=== PATIENT | male | born 1955 | race Caucasian/White ===

== ENCOUNTER 2018-07-09 12:11 | Emergency (ER) | payer OTHER ==
--- NOTE | 2018-07-09 13:02 | EDPHY ---
H & P Stated Complaint: awakened with a lapse in his memory of yesterday morning/no other symptoms Time Seen by Provider: 07/09/18 13:00 HPI/ROS: CHIEF COMPLAINT: Amnesia HISTORY OF PRESENT ILLNESS: 62-year-old male presents with amnesia. Onset of and needed to the events of today and yesterday starting at 11:30 a.m. Today. He was unable to recall any events related to the previous 36 hr initially. Now his memory is returning and he remembers almost everything. His remote memory remained intact. No headache, recent head injury and no prior CVA. No other associated symptoms. REVIEW OF SYSTEMS: complete 10 point ROS reviewed and is negative except for the noted elements in the HPI - Personal History Current Tetanus/Diphtheria Vaccine: Yes - Medical/Surgical History Hx Asthma: No Hx Chronic Respiratory Disease: No Hx Diabetes: No Hx Cardiac Disease: No Hx Renal Disease: No Hx Cirrhosis: No Hx Alcoholism: No Hx HIV/AIDS: No Hx Splenectomy or Spleen Trauma: No Other PMH: r back issues/l knee surg - Social History Smoking Status: Never smoked Alcohol Use: Sober Drug Use: None - Physical Exam Exam: General Appearance: Alert, pleasant, memory intact Eyes: Pupils equal and round, no conjunctival pallor or injection ENT, Mouth: Mucous membranes moist Neck: Normal inspection Respiratory: Lungs are clear to auscultation Cardiovascular: Regular rate and rhythm Gastrointestinal: Abdomen is soft and nontender Neurological: Alert, oriented x3, cranial nerves II through XII intact, motor 5 /5, sensory intact to light touch, normal gait Skin: Warm and dry, no rash Extremities: Nontender, no pedal edema Psychiatric: Mood and affect normal Constitutional: Initial Vital Signs Temperature (C) 36.5 C 07/09/18 12:17 Heart Rate 78 07/09/18 12:17 Respiratory Rate 17 07/09/18 12:17 Blood Pressure 164/84 H 07/09/18 12:17 O2 Sat (%) 95 07/09/18 12:17 O2 Delivery Mode Room Air Allergies/Adverse Reactions: No Known Allergies Allergy (Unverified 07/09/18 12:17) Home Medications: Medication Instructions Recorded NK [No Known Home Meds] 07/09/18 Medical Decision Making - Diagnostics EKG Interpretation: EKG interpreted by me reveals normal sinus rhythm, rate 60, no ST or T segment changes. Interpretation: Normal EKG Imaging Results: CT scan of the brain read by Dr. Iván Morris reveals mild atrophy, otherwise NAD. Imaging: Discussed imaging studies w/ econometrician Radiologist ED Course/Re-evaluation: This patient presents with transient global amnesia. Neurologic exam is normal. Laboratory tests and EKG are unremarkable. CT scan of the brain is unremarkable. I consulted Dr. Sean Nolan, who will follow up with the patient in the office. Differential Diagnosis: Altered mental status including but not limited to hypoglycemia, infectious process, electrolyte abnormality, head injury, CVA, and intoxicants. - Data Points Laboratory Results: Laboratory Results 07/09/18 13:06 07/09/18 13:06 07/09/18 07/09/18 07/09/18 13:10 13:06 13:06 WBC 5.22 10^3/uL 10^3/uL (3.80-9.50) RBC 6.02 10^6/uL 10^6/uL (4.40-6.38) Hgb 14.9 g/dL g/dL (13.7-17.5) Hct 47.4 % % (40.0-51.0) MCV 78.7 fL L fL (81.5-99.8) MCH 24.8 pg L pg (27.9-34.1) MCHC 31.4 g/dL L g/dL (32.4-36.7) RDW 15.4 % H % (11.5-15.2) Plt Count 196 10^3/uL 10^3/uL (150-400) MPV 9.4 fL fL (8.7-11.7) Neut % (Auto) 49.2 % % (39.3-74.2) Lymph % (Auto) 38.9 % % (15.0-45.0) Republic % (Auto) 9.6 % % (4.5-13.0) Eos % (Auto) 1.7 % % (0.6-7.6) Baso % (Auto) 0.4 % % (0.3-1.7) Nucleat RBC Rel Count 0.0 % % (0.0-0.2) Absolute Neuts (auto) 2.57 10^3/uL 10^3/uL (1.70-6.50) Absolute Lymphs (auto) 2.03 10^3/uL 10^3/uL (1.00-3.00) Absolute Monos (auto) 0.50 10^3/uL 10^3/uL (0.30-0.80) Absolute Eos (auto) 0.09 10^3/uL 10^3/uL (0.03-0.40) Absolute Basos (auto) 0.02 10^3/uL 10^3/uL (0.02-0.10) Absolute Nucleated RBC 0.00 10^3/uL 10^3/uL (0-0.01) Immature Gran % 0.2 % % (0.0-1.1) Immature Gran # 0.01 10^3/uL 10^3/uL (0.00-0.10) Sodium 141 mEq/L mEq/L (135-145) Potassium 4.3 mEq/L mEq/L (3.5-5.2) Chloride 106 mEq/L mEq/L (97-110) Carbon Dioxide 24 mEq/l mEq/l (22-31) Anion Gap 11 mEq/L mEq/L (6-14) BUN 15 mg/dL mg/dL (7-23) Creatinine 1.0 mg/dL mg/dL (0.7-1.3) Estimated GFR > 60 Glucose 113 mg/dL H mg/dL (70-100) Calcium 9.7 mg/dL mg/dL (8.5-10.4) POC Troponin I 0.00 ng/mL ng/mL (0.00-0.08) Point of Care Test Results: Chemistry 07/09/18 13:10 POC Troponin I 0.00 ng/mL ng/mL (0.00-0.08) Departure - Departure Disposition: Home, Routine, Self-Care Clinical Impression: Transient global amnesia Condition: Good Instructions: Transient Global Amnesia (ED) Referrals: JUJU BAUER [Primary Care Provider] - As per Instructions Naresh Nolan DO [Medical Doctor] - As per Instructions (Call to make an appointment.)
[2018-07-09 13:19] LABS: PLATELET COUNT 196 10^3/uL (150-400)
[2018-07-09 14:01] VITALS: BP 163/80
--- NOTE | 2018-07-09 20:59 | CPEKG ---
Test Reason : OPEN Blood Pressure : / mmHG Vent. Rate : 060 BPM Atrial Rate : 059 BPM P-R Int : 165 ms QRS Dur : 102 ms QT Int : 416 ms P-R-T Axes : 035 009 035 degrees QTc Int : 416 ms Sinus rhythm Confirmed by Fatou Benitez ([id number]) on 07/09/2018 8:58:43 PM Referred By: Fatou Benitez Confirmed By:Fatou Benitez
== END 2018-07-09 14:01 | disposition home or self-care (01) ==
DX: G45.4 Transient global amnesia (principal)
CPT/HCPCS: 84484-ER